=== PATIENT | female | born 1975 | race Caucasian/White ===

== ENCOUNTER 2016-11-09 19:13 | Emergency (ER) | payer OTHER ==
[~2016-11-09] VITALS: Ht 165.1 cm; Wt 102.5 kg
[~2016-11-09 19:13] MED LIST: ALBUTEROL0.09 MG/A2 IH; AMBIEN5 MG PO; ANTIVERT25 MG PO; BUSPAR15 MG PO; BUSPIRONE HCL7.5 MG PO; CELEXA10 MG PO; COLACE-T100 MG PO; IBUPROFEN800 MG PO; IRON325 M1 PO; LISINOPRIL10 MG PO; LISINOPRIL5 MG PO; METOPROLOL25 MG PO; NEXIUM20 MG PO; PERCOCET 325 MG1 TA2 PO; PREDNISONE20 MG PO; PRILOSEC20 MG PO; TRAMADOL HCL50 MG PO; TUMS 500500 MG PO; TYLENOL W/CODEI1 TA2 PO; ULTRAM50 MG PO; ZANTAC 150150 MG PO; ZOFRAN4 MG PO; ZOLOFT50 MG PO
[2016-11-09] MEDS ORDERED: DOXYCYCLINE100 M3 PO (20:45)
[2016-11-09 20:47] VITALS: BP 158/92
== END 2016-11-09 20:47 | disposition home or self-care (01) ==
LOC: ED 19:13
DX: L03.114 Cellulitis of left upper limb (principal); R51 Headache; F17.200 Nicotine dependence, unspecified, uncomplicated; R11.0 Nausea; Z88.0 Allergy status to penicillin; Z88.2 Allergy status to sulfonamides; Z79.899 Other long term (current) drug therapy

== ENCOUNTER 2017-03-11 13:29 | Inpatient (IN) | payer OTHER ==
[~2017-03-11] VITALS: Ht 165.1 cm; Wt 100.7 kg
[~2017-03-11 13:29] MED LIST changes: +DOXYCYCLINE100 M3 PO
[2017-03-11 13:33] VITALS: BP 144/102
[2017-03-11] MEDS ORDERED: PHENTERMINE H37.5 M1 PO (13:34)
[2017-03-11] MEDS ORDERED: LISINOPRIL20 MG PO (13:34)
[2017-03-11 14:10] LABS: BASO # 0.1 10*3/uL (0.0-0.1); BASO % 0.5 % (0.0-1.0); EOS # 0.1 10*3/uL (0.0-0.4); EOS % 0.6 % (1.0-4.0); HEMATOCRIT 44.8 % (37.0-47.0); HEMOGLOBIN 14.5 g/dl (12.0-16.0); LYMPH # 2.2 10*3/uL (1.3-4.4); MEAN CELL VOLUME 80.3 fl (81.0-99.0); MEAN CORPUSCULAR HGB CONC 32.4 g/dl (33.0-37.0); MEAN PLATELET VOLUME 10.2 fl (9.6-12.3); MONO # 0.8 10*3/uL (0.1-1.0); MONO % 6.4 % (3.0-9.0); NEUT # 9.7 10*3/uL (2.3-7.9); NEUT % 75.2 % (47.0-73.0); PLATELET COUNT AUTOMATED 377 10*3/uL (130-400); RED BLOOD COUNT 5.58 10*6/uL (4.10-5.10); RED CELL DISTRI WIDTH 14.9 % (0-14.5); WHITE BLOOD COUNT 12.9 10*3/uL (4.8-10.8)
[2017-03-11 14:19] LABS: INTERNATIONAL NORM RATIO 0.9 (2.0-3.5)
[2017-03-11 14:25] LABS: ALBUMIN 3.5 gm/dl (3.1-4.5); ALKALINE PHOSPHATASE 76 U/L (45-117); BILIRUBIN, TOTAL 0.7 mg/dl (0.2-1.0); BUN 10 mg/dl (7-24); C-REACTIVE PROTEIN 3.44 MG/DL (0-0.3); CARBON DIOXIDE 24 mmol/L (21-32); CHLORIDE 105 mmol/L (98-107); EST GLOM FILT AFRICAN AMERICAN > 60 ml/min; GLUCOSE 92 mg/dL (65-99); MAGNESIUM 1.9 mg/dL (1.5-2.1); POTASSIUM 4.1 mmol/L (3.5-5.1); SGOT/AST 21 IU/L (3-35); SGPT/ALT 38 U/L (12-78); SODIUM 138 mmol/L (136-145); TOTAL PROTEIN 7.1 gm/dL (6.4-8.2)
[2017-03-11 14:26] LABS: TROPONIN I < 0.015 ng/ml (<0.045)
[2017-03-11 16:21] VITALS: BP 151/91
[2017-03-11 16:45] VITALS: BP 150/88
[2017-03-11] MEDS ORDERED: FLONASE ALLERG9.9 ML NAS (17:09)
[2017-03-11] MEDS ORDERED: XANAX0.5 MG PO (17:10)
[2017-03-11 20:00] VITALS: BP 132/69
[2017-03-11 22:57] LABS: BILIRUBIN NEGATIVE (NEGATIVE); BLOOD NEGATIVE (NEGATIVE); CLARITY SL CLOUDY (CLEAR); COLOR YELLOW (YELLOW); GLUCOSE NEGATIVE (NEGATIVE); KETONE 2+ (NEGATIVE); LEUKO ESTERASE NEGATIVE (NEGATIVE); NITRITE NEGATIVE (NEGATIVE); PH 5.5 (5.0-9.0); PROTEIN NEGATIVE (NEGATIVE); UROBILINOGEN 0.2 E.U./dl (0.2-1.0)
[2017-03-11 22:58] LABS: BACTERIA 2+; URINE REFLEX COMMENT YES (NO)
[2017-03-12] VITALS: BP 98/42
[2017-03-12 04:00] VITALS: BP 116/71
[2017-03-12 06:33] LABS: BASO # 0.1 10*3/uL (0.0-0.1); BASO % 0.8 % (0.0-1.0); EOS # 0.2 10*3/uL (0.0-0.4); EOS % 2.3 % (1.0-4.0); LYMPH # 3.1 10*3/uL (1.3-4.4); LYMPH % 41.2 % (27.0-41.0); MEAN CELL VOLUME 82.6 fl (81.0-99.0); MEAN CORPUSCULAR HGB 26.2 pg (27.0-31.0); MEAN CORPUSCULAR HGB CONC 31.7 g/dl (33.0-37.0); MEAN PLATELET VOLUME 10.2 fl (9.6-12.3); MONO # 0.7 10*3/uL (0.1-1.0); MONO % 9.2 % (3.0-9.0); NEUT # 3.4 10*3/uL (2.3-7.9); NEUT % 46.4 % (47.0-73.0); PLATELET COUNT AUTOMATED 290 10*3/uL (130-400); RED BLOOD COUNT 4.32 10*6/uL (4.10-5.10); RED CELL DISTRI WIDTH 14.9 % (0-14.5); WHITE BLOOD COUNT 7.4 10*3/uL (4.8-10.8)
[2017-03-12 06:36] LABS: HEMATOCRIT 35.7 % (37.0-47.0); HEMOGLOBIN 11.3 g/dl (12.0-16.0)
[2017-03-12 06:48] LABS: BUN 6 mg/dl (7-24); CARBON DIOXIDE 28 mmol/L (21-32); CHLORIDE 108 mmol/L (98-107); CHOLESTEROL 108 mg/dL (<200); EST GLOM FILT AFRICAN AMERICAN > 60 ml/min; FREE T4 1.07 ng/dl (0.76-1.46); GLUCOSE 79 mg/dL (65-99); HDL CHOLESTEROL 39 mg/dl (40-60); LDL CHOLESTEROL 52 mg/dL (9-159); PHOSPHOROUS 3.1 mg/dL (2.5-4.9); POTASSIUM 3.9 mmol/L (3.5-5.1); SODIUM 139 mmol/L (136-145); TRIGLYCERIDES 86 mg/dl (<150); VLDL CHOLESTEROL 17 mg/dL (6-40)
[2017-03-12 06:54] LABS: THYROID STIM HORMONE (HS) 0.993 uIU/ml (0.358-4.75)
[2017-03-12 06:57] LABS: HEMOGLOBIN A1c 5.5 % (4.8-5.6)
[2017-03-12 07:36] LABS: VITAMIN D, 25-HYDROXY 16.8 ng/mL (30-100)
[2017-03-12 07:49] LABS: FOLIC ACID > 24.00 ng/mL (>5.38)
[2017-03-12 08:00] VITALS: BP 110/64
[2017-03-12 12:00] VITALS: BP 128/69
[2017-03-12 16:00] VITALS: BP 100/50
[2017-03-12 20:00] VITALS: BP 124/73
[2017-03-13] VITALS: BP 107/54
[2017-03-13 06:59] LABS: BASO # 0.1 10*3/uL (0.0-0.1); BASO % 1.2 % (0.0-1.0); EOS # 0.2 10*3/uL (0.0-0.4); EOS % 3.5 % (1.0-4.0); HEMATOCRIT 33.6 % (37.0-47.0); HEMOGLOBIN 10.5 g/dl (12.0-16.0); LYMPH # 3.2 10*3/uL (1.3-4.4); LYMPH % 45.7 % (27.0-41.0); MEAN CELL VOLUME 83.2 fl (81.0-99.0); MEAN CORPUSCULAR HGB CONC 31.3 g/dl (33.0-37.0); MEAN PLATELET VOLUME 10.2 fl (9.6-12.3); MONO # 0.6 10*3/uL (0.1-1.0); MONO % 9.3 % (3.0-9.0); NEUT # 2.8 10*3/uL (2.3-7.9); PLATELET COUNT AUTOMATED 281 10*3/uL (130-400); RED BLOOD COUNT 4.04 10*6/uL (4.10-5.10); RED CELL DISTRI WIDTH 14.8 % (0-14.5); WHITE BLOOD COUNT 6.9 10*3/uL (4.8-10.8)
[2017-03-13 07:30] LABS: ALBUMIN 2.9 gm/dl (3.1-4.5); CHLORIDE 108 mmol/L (98-107); POTASSIUM 3.7 mmol/L (3.5-5.1); SODIUM 141 mmol/L (136-145)
[2017-03-13 07:38] LABS: ALKALINE PHOSPHATASE 104 U/L (45-117); BILIRUBIN, TOTAL 0.2 mg/dl (0.2-1.0); BUN 8 mg/dl (7-24); CARBON DIOXIDE 27 mmol/L (21-32); EST GLOM FILT AFRICAN AMERICAN > 60 ml/min; GLUCOSE 90 mg/dL (65-99); SGOT/AST 22 IU/L (3-35); SGPT/ALT 28 U/L (12-78)
[2017-03-13 08:00] VITALS: BP 124/64
[2017-03-13 12:00] VITALS: BP 120/65; BP 122/64
[2017-03-13 16:07] VITALS: BP 120/62
[2017-03-13 16:58] VITALS: BP 143/78
[2017-03-13 20:00] VITALS: BP 140/75
[2017-03-14] VITALS: BP 122/57
[2017-03-14 06:17] LABS: BASO # 0.1 10*3/uL (0.0-0.1); BASO % 0.9 % (0.0-1.0); EOS # 0.2 10*3/uL (0.0-0.4); EOS % 3.7 % (1.0-4.0); HEMATOCRIT 32.8 % (37.0-47.0); HEMOGLOBIN 10.4 g/dl (12.0-16.0); LYMPH % 45.1 % (27.0-41.0); MEAN CELL VOLUME 82.4 fl (81.0-99.0); MEAN CORPUSCULAR HGB 26.1 pg (27.0-31.0); MEAN CORPUSCULAR HGB CONC 31.7 g/dl (33.0-37.0); MEAN PLATELET VOLUME 10.6 fl (9.6-12.3); MONO # 0.5 10*3/uL (0.1-1.0); MONO % 8.1 % (3.0-9.0); NEUT # 2.7 10*3/uL (2.3-7.9); NEUT % 41.9 % (47.0-73.0); PLATELET COUNT AUTOMATED 270 10*3/uL (130-400); RED BLOOD COUNT 3.98 10*6/uL (4.10-5.10); RED CELL DISTRI WIDTH 14.8 % (0-14.5); WHITE BLOOD COUNT 6.5 10*3/uL (4.8-10.8)
[2017-03-14 08:00] VITALS: BP 132/92
[2017-03-14] MEDS ORDERED: METRONIDAZOLE500 M1 PO (09:35)
[2017-03-14] MEDS ORDERED: B12,B-12,B 12500 MC1 PO (09:35)
[2017-03-14] MEDS ORDERED: D-1000 185 MG-11 TAB PO (09:35)
[2017-03-14] MEDS ORDERED: CIPROFLOXACIN500 M4 PO (09:35)
== END 2017-03-14 11:04 | disposition home or self-care (01) | DRG 872 ==
LOC: ED 13:29 → EDHOLD 15:53 → 5E 16:17
PROVIDERS: Internal Medicine; Internal Medicine Hospice and Palliative Medicine; Student in an Organized Health Care Education/Training Program
DX: A41.9 Sepsis, unspecified organism (principal); R34 Anuria and oliguria; F33.9 Major depressive disorder, recurrent, unspecified; R18.8 Other ascites; F41.9 Anxiety disorder, unspecified; I10 Essential (primary) hypertension; Z87.891 Personal history of nicotine dependence; Z82.49 Family history of ischemic heart disease and other diseases of the circulatory system; Z88.2 Allergy status to sulfonamides; Z88.0 Allergy status to penicillin; K52.9 Noninfective gastroenteritis and colitis, unspecified; J45.909 Unspecified asthma, uncomplicated; E66.9 Obesity, unspecified; N92.1 Excessive and frequent menstruation with irregular cycle; R79.82 Elevated C-reactive protein (CRP); E55.9 Vitamin D deficiency, unspecified; E53.8 Deficiency of other specified B group vitamins; Z90.49 Acquired absence of other specified parts of digestive tract

== ENCOUNTER 2017-07-04 01:58 | Emergency (ER) | payer OTHER ==
[~2017-07-04] VITALS: Ht 165.1 cm; Wt 93.0 kg
[~2017-07-04 01:58] MED LIST changes: +B12,B-12,B 12500 MC1 PO; +CIPROFLOXACIN500 M4 PO; +D-1000 185 MG-11 TAB PO; +FLONASE ALLERG9.9 ML NAS; +LISINOPRIL20 MG PO; +METRONIDAZOLE500 M1 PO; +PHENTERMINE H37.5 M1 PO; +XANAX0.5 MG PO
[2017-07-04 02:22] VITALS: BP 145/78
[2017-07-04] MEDS ORDERED: Motrin,Rufen800 MG PO (02:52)
[2017-07-04] MEDS ORDERED: CLINDAMYCIN HC300 MG PO (02:52)
== END 2017-07-04 03:41 | disposition home or self-care (01) ==
LOC: ED 01:58
DX: K04.01 Reversible pulpitis (principal); K02.9 Dental caries, unspecified; I10 Essential (primary) hypertension; J45.909 Unspecified asthma, uncomplicated; Z88.0 Allergy status to penicillin; Z88.2 Allergy status to sulfonamides; Z79.899 Other long term (current) drug therapy; Z87.891 Personal history of nicotine dependence

== ENCOUNTER → 2017-07-18 | Outpatient (CLI) | payer OTHER ==
[~2017-07-18] MED LIST changes: +CLINDAMYCIN HC300 MG PO; +Motrin,Rufen800 MG PO
== END | disposition home or self-care (01) ==
LOC: RAD 15:22
DX: M47.896 Other spondylosis, lumbar region (principal); M54.41 Lumbago with sciatica, right side

== ENCOUNTER 2017-12-10 18:19 | Inpatient (IN) | payer OTHER ==
[~2017-12-10] VITALS: Ht 165.1 cm; Wt 101.3 kg
[2017-12-10 18:30] VITALS: BP 146/103
[2017-12-10 19:08] VITALS: BP 139/95
[2017-12-10 19:17] LABS: BASO % 0.8 % (0.0-1.0); EOS # 0.1 10*3/uL (0.0-0.4); EOS % 2.6 % (1.0-4.0); HEMATOCRIT 40.6 % (37.0-47.0); HEMOGLOBIN 13.2 g/dl (12.0-16.0); LYMPH # 1.7 10*3/uL (1.3-4.4); LYMPH % 32.1 % (27.0-41.0); MEAN CELL VOLUME 83.5 fl (81.0-99.0); MEAN CORPUSCULAR HGB 27.2 pg (27.0-31.0); MEAN CORPUSCULAR HGB CONC 32.5 g/dl (33.0-37.0); MEAN PLATELET VOLUME 9.7 fl (9.6-12.3); MONO # 0.6 10*3/uL (0.1-1.0); MONO % 11.5 % (3.0-9.0); NEUT # 2.8 10*3/uL (2.3-7.9); NEUT % 52.6 % (47.0-73.0); PLATELET COUNT AUTOMATED 259 10*3/uL (130-400); RED BLOOD COUNT 4.86 10*6/uL (4.10-5.10); RED CELL DISTRI WIDTH 14.6 % (0-14.5); WHITE BLOOD COUNT 5.3 10*3/uL (4.8-10.8)
[2017-12-10 19:31] LABS: INTERNATIONAL NORM RATIO 0.9 (2.0-3.5)
[2017-12-10 19:33] LABS: ALBUMIN 3.2 gm/dl (3.1-4.5); BUN 10 mg/dl (7-24); CHLORIDE 101 mmol/L (98-107); CREATININE 0.69 mg/dL (0.55-1.02); POTASSIUM 3.7 mmol/L (3.5-5.1); SGOT/AST 12 IU/L (3-35); SGPT/ALT 18 U/L (12-78); SODIUM 137 mmol/L (136-145); TOTAL PROTEIN 7.2 gm/dL (6.4-8.2)
[2017-12-10 19:34] LABS: ALKALINE PHOSPHATASE 101 U/L (45-117)
[2017-12-10 19:36] LABS: TROPONIN I < 0.015 ng/ml (<0.045)
[2017-12-10 20:33] VITALS: BP 135/86
[2017-12-10 21:38] LABS: BILIRUBIN NEGATIVE (NEGATIVE); BLOOD TRACE-INTACT (NEGATIVE); CLARITY CLEAR (CLEAR); COLOR YELLOW (YELLOW); GLUCOSE NEGATIVE (NEGATIVE); KETONE NEGATIVE (NEGATIVE); LEUKO ESTERASE NEGATIVE (NEGATIVE); NITRITE NEGATIVE (NEGATIVE); PH 5.5 (5.0-9.0); SPECIFIC GRAVITY >= 1.030 (1.005-1.030); UROBILINOGEN 0.2 E.U./dl (0.2-1.0)
[2017-12-10 21:58] VITALS: BP 128/68
[2017-12-10 22:02] LABS: BACTERIA TRACE
[2017-12-10 22:53] VITALS: BP 118/67
[2017-12-10 23:30] VITALS: BP 132/90
[2017-12-11 02:53] LABS: BASO % 0.6 % (0.0-1.0); EOS # 0.1 10*3/uL (0.0-0.4); EOS % 2.1 % (1.0-4.0); HEMATOCRIT 35.7 % (37.0-47.0); HEMOGLOBIN 11.6 g/dl (12.0-16.0); LYMPH # 2.5 10*3/uL (1.3-4.4); LYMPH % 52.3 % (27.0-41.0); MEAN CELL VOLUME 84.2 fl (81.0-99.0); MEAN CORPUSCULAR HGB 27.4 pg (27.0-31.0); MEAN CORPUSCULAR HGB CONC 32.5 g/dl (33.0-37.0); MONO # 0.7 10*3/uL (0.1-1.0); MONO % 14.8 % (3.0-9.0); NEUT # 1.4 10*3/uL (2.3-7.9); PLATELET COUNT AUTOMATED 231 10*3/uL (130-400); RED BLOOD COUNT 4.24 10*6/uL (4.10-5.10); RED CELL DISTRI WIDTH 14.5 % (0-14.5); WHITE BLOOD COUNT 4.7 10*3/uL (4.8-10.8)
[2017-12-11 03:03] LABS: BUN 10 mg/dl (7-24); CHLORIDE 106 mmol/L (98-107); POTASSIUM 3.7 mmol/L (3.5-5.1); SODIUM 139 mmol/L (136-145)
[2017-12-11 03:06] LABS: CHOLESTEROL 124 mg/dL (<200); HDL CHOLESTEROL 37 mg/dl (40-60); LDL CHOLESTEROL 76 mg/dL (9-159); PHOSPHOROUS 3.4 mg/dL (2.5-4.9); TRIGLYCERIDES 55 mg/dl (<150); VLDL CHOLESTEROL 11 mg/dL (6-40)
[2017-12-11 07:30] VITALS: BP 132/84
[2017-12-11 08:48] LABS: VITAMIN D, 25-HYDROXY 21.5 ng/mL (30-100)
[2017-12-11 12:00] VITALS: BP 121/64
[2017-12-11 16:00] VITALS: BP 112/65
[2017-12-11 20:00] VITALS: BP 117/53
[2017-12-12] VITALS: BP 121/68
[2017-12-12 07:30] VITALS: BP 122/62
[2017-12-12 11:00] VITALS: BP 130/74
[2017-12-12] MEDS ORDERED: Zofran4 MG SL (15:56)
[2017-12-12 16:00] VITALS: BP 151/78
[2017-12-12] MEDS ORDERED: LOPRESSOR25 MG PO (17:01)
== END 2017-12-12 17:57 | disposition home or self-care (01) | DRG 872 ==
LOC: ED 18:19 → EDHOLD 22:49 → 4E 23:21
PROVIDERS: Physician Assistant; Student in an Organized Health Care Education/Training Program
PROC: 4A02XM4 Measurement of Cardiac Total Activity, External Approach (ICD-10-PCS; principal; 2017-12-12)
DX: A41.9 Sepsis, unspecified organism (principal); E44.1 Mild protein-calorie malnutrition; F33.9 Major depressive disorder, recurrent, unspecified; E83.41 Hypermagnesemia; B34.9 Viral infection, unspecified; I10 Essential (primary) hypertension; D64.9 Anemia, unspecified; J45.909 Unspecified asthma, uncomplicated; E66.9 Obesity, unspecified; R00.2 Palpitations; G47.33 Obstructive sleep apnea (adult) (pediatric); Z90.49 Acquired absence of other specified parts of digestive tract; Z87.891 Personal history of nicotine dependence; Z82.49 Family history of ischemic heart disease and other diseases of the circulatory system; Z83.3 Family history of diabetes mellitus; Z88.0 Allergy status to penicillin; Z88.2 Allergy status to sulfonamides; Z79.01 Long term (current) use of anticoagulants; Z79.899 Other long term (current) drug therapy; Z68.37 Body mass index [BMI] 37.0-37.9, adult

== ENCOUNTER 2018-01-25 19:22 | Inpatient (IN) | payer OTHER ==
[~2018-01-25] VITALS: Ht 165.1 cm; Wt 101.7 kg
--- NOTE | ~2018-01-25 | EKG ---
[place], [place] ELECTROCARDIOGRAM REPORT NAME: LUCINDA BUTLER UNIT #: [id number] ROOM: [id number] DOCTOR: KANDY WILSON,PADMINI BIRTHDATE: [birth year] DOS: 01/25/2018 TIME: 1957 hours. FINDINGS: 1. Normal sinus rhythm at 91 beats per minute. 2. Left ventricular hypertrophy. 3. Nonspecific T-wave changes in chest leads. 4. There is minimal ST segment depression and T-wave abnormality in lead III and aVF. 5. An abnormal ECG. 6. No previous tracing is available for comparison. PADMINI GAITAN MD CM:EKGRPT:ELECTROCARDIOGRAM REPORT [id number] PADMINI GAITAN MD
[~2018-01-25 19:22] MED LIST changes: +LOPRESSOR25 MG PO; +Zofran4 MG SL
[2018-01-25 19:25] VITALS: BP 142/94
[2018-01-25 19:58] LABS: BASO % 0.6 % (0.0-1.0); EOS # 0.1 10*3/uL (0.0-0.4); EOS % 1.5 % (1.0-4.0); HEMATOCRIT 42.1 % (37.0-47.0); HEMOGLOBIN 13.7 g/dl (12.0-16.0); LYMPH # 1.3 10*3/uL (1.3-4.4); LYMPH % 27.2 % (27.0-41.0); MEAN CELL VOLUME 83.7 fl (81.0-99.0); MEAN CORPUSCULAR HGB 27.2 pg (27.0-31.0); MEAN CORPUSCULAR HGB CONC 32.5 g/dl (33.0-37.0); MEAN PLATELET VOLUME 9.9 fl (9.6-12.3); MONO # 0.7 10*3/uL (0.1-1.0); MONO % 14.6 % (3.0-9.0); NEUT # 2.6 10*3/uL (2.3-7.9); NEUT % 55.7 % (47.0-73.0); PLATELET COUNT AUTOMATED 246 10*3/uL (130-400); RED BLOOD COUNT 5.03 10*6/uL (4.10-5.10); RED CELL DISTRI WIDTH 14.2 % (0-14.5); WHITE BLOOD COUNT 4.7 10*3/uL (4.8-10.8)
[2018-01-25 20:00] VITALS: BP 118/85
[2018-01-25 20:15] LABS: ALBUMIN 2.9 gm/dl (3.1-4.5); ALKALINE PHOSPHATASE 234 U/L (45-117); BUN 8 mg/dl (7-24); CHLORIDE 102 mmol/L (98-107); CREATININE 0.62 mg/dL (0.55-1.02); LIPASE 278 U/L (73-393); POTASSIUM 3.6 mmol/L (3.5-5.1); SGOT/AST 204 IU/L (3-35); SGPT/ALT 129 U/L (12-78); SODIUM 135 mmol/L (136-145); TOTAL PROTEIN 6.4 gm/dL (6.4-8.2); TROPONIN I < 0.015 ng/ml (<0.045)
[2018-01-25 20:22] VITALS: BP 118/85
[2018-01-25 20:51] VITALS: BP 131/66
[2018-01-25 21:36] LABS: BILIRUBIN NEGATIVE (NEGATIVE); BLOOD NEGATIVE (NEGATIVE); CLARITY CLEAR (CLEAR); COLOR YELLOW (YELLOW); GLUCOSE NEGATIVE (NEGATIVE); KETONE NEGATIVE (NEGATIVE); LEUKO ESTERASE NEGATIVE (NEGATIVE); NITRITE NEGATIVE (NEGATIVE); PH 6.5 (5.0-9.0); SPECIFIC GRAVITY <= 1.005 (1.005-1.030); UROBILINOGEN 0.2 E.U./dl (0.2-1.0)
[2018-01-25 21:40] LABS: BACTERIA 2+; RBC 0-2 rbc/hpf (0-2)
[2018-01-25 22:00] VITALS: BP 119/69
[2018-01-25] MEDS ORDERED: CITALOPRAM HYDR40 MG PO (22:10)
[2018-01-26] VITALS: BP 106/54
[2018-01-26 05:58] LABS: BASO % 0.9 % (0.0-1.0); EOS # 0.1 10*3/uL (0.0-0.4); EOS % 2.3 % (1.0-4.0); HEMATOCRIT 37.3 % (37.0-47.0); HEMOGLOBIN 11.8 g/dl (12.0-16.0); LYMPH % 46.2 % (27.0-41.0); MEAN CELL VOLUME 86.1 fl (81.0-99.0); MEAN CORPUSCULAR HGB 27.3 pg (27.0-31.0); MEAN CORPUSCULAR HGB CONC 31.6 g/dl (33.0-37.0); MEAN PLATELET VOLUME 10.4 fl (9.6-12.3); MONO # 0.7 10*3/uL (0.1-1.0); MONO % 16.4 % (3.0-9.0); NEUT # 1.5 10*3/uL (2.3-7.9); PLATELET COUNT AUTOMATED 228 10*3/uL (130-400); RED BLOOD COUNT 4.33 10*6/uL (4.10-5.10); RED CELL DISTRI WIDTH 14.3 % (0-14.5); WHITE BLOOD COUNT 4.3 10*3/uL (4.8-10.8)
[2018-01-26 06:01] LABS: ALBUMIN 2.5 gm/dl (3.1-4.5); BUN 7 mg/dl (7-24); CHLORIDE 107 mmol/L (98-107); POTASSIUM 3.6 mmol/L (3.5-5.1); SGPT/ALT 162 U/L (12-78); SODIUM 141 mmol/L (136-145)
[2018-01-26 06:04] LABS: ALKALINE PHOSPHATASE 210 U/L (45-117); PHOSPHOROUS 3.1 mg/dL (2.5-4.9); SGOT/AST 244 IU/L (3-35); TOTAL PROTEIN 5.5 gm/dL (6.4-8.2)
[2018-01-26 08:00] VITALS: BP 117/63
[2018-01-26 12:00] VITALS: BP 112/65
[2018-01-26] MEDS ORDERED: VOLTAREN100 GM T (13:31)
[2018-01-26] MEDS ORDERED: VOLTAREN50 M1 PO (15:48)
[2018-01-26 16:07] VITALS: BP 129/77
[2018-01-26 20:00] VITALS: BP 121/75
[2018-01-27] VITALS: BP 112/51
[2018-01-27 05:55] LABS: BASO % 0.4 % (0.0-1.0); EOS # 0.3 10*3/uL (0.0-0.4); EOS % 4.6 % (1.0-4.0); HEMATOCRIT 35.9 % (37.0-47.0); HEMOGLOBIN 11.3 g/dl (12.0-16.0); LYMPH # 2.4 10*3/uL (1.3-4.4); LYMPH % 44.1 % (27.0-41.0); MEAN CELL VOLUME 86.9 fl (81.0-99.0); MEAN CORPUSCULAR HGB 27.4 pg (27.0-31.0); MEAN CORPUSCULAR HGB CONC 31.5 g/dl (33.0-37.0); MEAN PLATELET VOLUME 10.5 fl (9.6-12.3); MONO # 0.7 10*3/uL (0.1-1.0); MONO % 13.3 % (3.0-9.0); NEUT % 37.2 % (47.0-73.0); PLATELET COUNT AUTOMATED 220 10*3/uL (130-400); RED BLOOD COUNT 4.13 10*6/uL (4.10-5.10); RED CELL DISTRI WIDTH 14.4 % (0-14.5); WHITE BLOOD COUNT 5.4 10*3/uL (4.8-10.8)
[2018-01-27 05:56] LABS: ALBUMIN 2.4 gm/dl (3.1-4.5); ALKALINE PHOSPHATASE 200 U/L (45-117); BUN 7 mg/dl (7-24); CHLORIDE 108 mmol/L (98-107); CREATININE 0.47 mg/dL (0.55-1.02); LIPASE 95 U/L (73-393); POTASSIUM 3.9 mmol/L (3.5-5.1); SGOT/AST 101 IU/L (3-35); SGPT/ALT 140 U/L (12-78); SODIUM 140 mmol/L (136-145); TOTAL PROTEIN 5.4 gm/dL (6.4-8.2)
[2018-01-27 08:00] VITALS: BP 127/78
[2018-01-27] MEDS ORDERED: CITALOPRAM HYDR40 MG PO (11:21)
[2018-01-27] MEDS ORDERED: PHENERGAN25 M3 PO (11:21)
[2018-01-27] MEDS ORDERED: LISINOPRIL20 MG PO (11:21)
[2018-01-28 08:08] LABS: HEPATITIS B SURFACE AG Negative (Negative); HEPATITIS C VIRUS ANTIBODY <0.1 s/co (0.0-0.9)
== END 2018-01-27 12:58 | disposition home or self-care (01) | DRG 392 ==
LOC: ED 19:22 → EDHOLD 21:15 → 4E 21:40
PROVIDERS: Emergency Medicine; Emergency Medicine Emergency Medical Services; Family Medicine; Student in an Organized Health Care Education/Training Program
DX: K52.9 Noninfective gastroenteritis and colitis, unspecified (principal); E87.1 Hypo-osmolality and hyponatremia; B34.9 Viral infection, unspecified; E66.9 Obesity, unspecified; F32.9 Major depressive disorder, single episode, unspecified; J45.909 Unspecified asthma, uncomplicated; I10 Essential (primary) hypertension; G47.33 Obstructive sleep apnea (adult) (pediatric); F41.9 Anxiety disorder, unspecified; E78.5 Hyperlipidemia, unspecified; R74.0 Nonspecific elevation of levels of transaminase and lactic acid dehydrogenase [LDH]; R00.0 Tachycardia, unspecified; D72.819 Decreased white blood cell count, unspecified; E53.8 Deficiency of other specified B group vitamins; E55.9 Vitamin D deficiency, unspecified; Z88.2 Allergy status to sulfonamides; Z88.0 Allergy status to penicillin; Z90.49 Acquired absence of other specified parts of digestive tract; Z87.891 Personal history of nicotine dependence; Z83.3 Family history of diabetes mellitus; Z82.49 Family history of ischemic heart disease and other diseases of the circulatory system; Z68.37 Body mass index [BMI] 37.0-37.9, adult

== ENCOUNTER → 2018-04-07 | Outpatient (CLI) | payer OTHER ==
[~2018-04-07] MED LIST changes: +CITALOPRAM HYDR40 MG PO; +PHENERGAN25 M3 PO; +VOLTAREN100 GM T; +VOLTAREN50 M1 PO
[2018-04-07 19:44] LABS: BASO # 0.1 10*3/uL (0.0-0.1); BASO % 1.1 % (0.0-1.0); BILIRUBIN NEGATIVE (NEGATIVE); BLOOD NEGATIVE (NEGATIVE); CLARITY CLEAR (CLEAR); COLOR YELLOW (YELLOW); EOS # 0.3 10*3/uL (0.0-0.4); EOS % 2.5 % (1.0-4.0); GLUCOSE NEGATIVE (NEGATIVE); HEMATOCRIT 40.1 % (37.0-47.0); HEMOGLOBIN 12.7 g/dl (12.0-16.0); KETONE NEGATIVE (NEGATIVE); LEUKO ESTERASE NEGATIVE (NEGATIVE); LYMPH # 3.5 10*3/uL (1.3-4.4); LYMPH % 35.4 % (27.0-41.0); MEAN CELL VOLUME 86.1 fl (81.0-99.0); MEAN CORPUSCULAR HGB 27.3 pg (27.0-31.0); MEAN CORPUSCULAR HGB CONC 31.7 g/dl (33.0-37.0); MONO # 0.9 10*3/uL (0.1-1.0); MONO % 9.2 % (3.0-9.0); NEUT # 5.1 10*3/uL (2.3-7.9); NEUT % 51.5 % (47.0-73.0); NITRITE NEGATIVE (NEGATIVE); PLATELET COUNT AUTOMATED 313 10*3/uL (130-400); RED BLOOD COUNT 4.66 10*6/uL (4.10-5.10); RED CELL DISTRI WIDTH 13.9 % (0-14.5); SPECIFIC GRAVITY 1.015 (1.005-1.030); UROBILINOGEN 0.2 E.U./dl (0.2-1.0)
[2018-04-07 19:49] LABS: BACTERIA 2+; MUCOUS TRACE; WBC 0-2 wbc/hpf (0-5)
[2018-04-07 19:55] LABS: ACT PARTIAL THROMBO TIME 23.5 SECONDS (20.8-31.5); INTERNATIONAL NORM RATIO 0.9 (2.0-3.5)
[2018-04-07 20:01] LABS: ALBUMIN 3.4 gm/dl (3.1-4.5); ALKALINE PHOSPHATASE 111 U/L (45-117); BUN 13 mg/dl (7-24); CHLORIDE 105 mmol/L (98-107); CREATININE 0.66 mg/dL (0.55-1.02); POTASSIUM 4.2 mmol/L (3.5-5.1); SGOT/AST 5 IU/L (3-35); SGPT/ALT 21 U/L (12-78); SODIUM 137 mmol/L (136-145); TOTAL PROTEIN 7.1 gm/dL (6.4-8.2)
== END ==
LOC: LAB 18:44
PROVIDERS: Orthopaedic Surgery
DX: Z01.818 Encounter for other preprocedural examination (principal); M19.90 Unspecified osteoarthritis, unspecified site; I10 Essential (primary) hypertension; J45.909 Unspecified asthma, uncomplicated; M79.669 Pain in unspecified lower leg

== ENCOUNTER 2019-12-20 07:45 | Emergency (ER) | payer OTHER ==
[~2019-12-20] VITALS: Ht 165.1 cm; Wt 97.5 kg
[~2019-12-20 07:45] MED LIST changes: +ROBAXIN-750750 MG PO; +VISTARIL25 M2 PO
[2019-12-20 07:50] VITALS: BP 130/69
[2019-12-20 08:22] LABS: BASO % 0.3 % (0.0-1.0); EOS % 0.3 % (1.0-4.0); HEMATOCRIT 44.6 % (37.0-47.0); HEMOGLOBIN 14.8 g/dl (12.0-16.0); LYMPH % 14.3 % (27.0-41.0); MEAN CELL VOLUME 84.6 fl (81.0-99.0); MEAN CORPUSCULAR HGB 28.1 pg (27.0-31.0); MEAN CORPUSCULAR HGB CONC 33.2 g/dl (33.0-37.0); MEAN PLATELET VOLUME 9.9 fl (9.6-12.3); MONO # 0.4 10*3/uL (0.1-1.0); MONO % 5.4 % (3.0-9.0); NEUT # 5.3 10*3/uL (2.3-7.9); NEUT % 79.1 % (47.0-73.0); PLATELET COUNT AUTOMATED 283 10*3/uL (130-400); RED BLOOD COUNT 5.27 10*6/uL (4.10-5.10); RED CELL DISTRI WIDTH 14.2 % (0-14.5); WHITE BLOOD COUNT 6.7 10*3/uL (4.8-10.8)
[2019-12-20 08:47] LABS: ALBUMIN 2.9 gm/dl (3.1-4.5); ALKALINE PHOSPHATASE 146 U/L (45-117); BUN 13 mg/dl (7-24); CHLORIDE 105 mmol/L (98-107); CREATININE 0.63 mg/dL (0.55-1.02); POTASSIUM 3.8 mmol/L (3.5-5.1); SGOT/AST 47 IU/L (3-35); SGPT/ALT 49 U/L (12-78); SODIUM 136 mmol/L (136-145); TOTAL PROTEIN 6.6 gm/dL (6.4-8.2)
[2019-12-20] MEDS ORDERED: NAPROSYN500 MG PO ×2 (09:40→11:04)
[2019-12-20] MEDS ORDERED: REGLAN10 M1 PO ×2 (09:40→11:04)
[2019-12-20] MEDS ORDERED: BENADRYL ALLERG25 M5 PO ×2 (09:40→11:04)
[2019-12-20] MEDS ORDERED: TYLENOL325 M1 PO ×2 (09:40→11:04)
== END 2019-12-20 09:38 | disposition home or self-care (01) ==
LOC: ED 07:45
PROVIDERS: Emergency Medicine
DX: B34.9 Viral infection, unspecified (principal); M19.90 Unspecified osteoarthritis, unspecified site; J45.909 Unspecified asthma, uncomplicated; I10 Essential (primary) hypertension; E66.9 Obesity, unspecified; Z88.2 Allergy status to sulfonamides; Z79.899 Other long term (current) drug therapy; Z87.891 Personal history of nicotine dependence

== ENCOUNTER 2024-07-01 16:25 | Emergency (ER) | payer OTHER ==
[~2024-07-01] VITALS: Wt 79.4 kg
[~2024-07-01 16:25] MED LIST changes: +AMOX-CLAV 875-1 EACH PO; +BENADRYL ALLERG25 M5 PO; +DULOXETINE HCL60 MG PO; +LISINOPRIL10 M1 PO; +MEDROL DOSEPAK4 MG PO; +MELOXICAM7.5 MG PO; +NAPROSYN500 MG PO; +PANTOPRAZOLE SO40 MG PO; +REGLAN10 M1 PO; +TYLENOL325 M1 PO; +VENT7GM INH; +WELLBUTRIN SR100 MG PO
[2024-07-01 16:51] VITALS: BP 161/121
[2024-07-01 17:26] LABS: BASO # 0.1 10*3/uL (0.0-0.1); BASO % 1.2 % (0.0-1.0); EOS # 0.1 10*3/uL (0.0-0.4); EOS % 1.6 % (1.0-4.0); HEMATOCRIT 46.1 % (37.0-47.0); LYMPH # 3.3 10*3/uL (1.3-4.4); LYMPH % 43.3 % (27.0-41.0); MEAN CELL VOLUME 85.8 fl (81.0-99.0); MEAN CORPUSCULAR HGB 28.5 pg (27.0-31.0); MEAN CORPUSCULAR HGB CONC 33.2 g/dl (33.0-37.0); MONO # 0.6 10*3/uL (0.1-1.0); MONO % 8.4 % (3.0-9.0); NEUT # 3.4 10*3/uL (2.3-7.9); NEUT % 45.2 % (47.0-73.0); PLATELET COUNT AUTOMATED 288 10*3/uL (130-400); RED BLOOD COUNT 5.37 10*6/uL (4.10-5.10); RED CELL DISTRI WIDTH 13.8 % (0-14.5); WHITE BLOOD COUNT 7.6 10*3/uL (4.8-10.8)
[2024-07-01 17:46] LABS: BUN 5 mg/dl (9-23); CHLORIDE 107 mmol/L (98-107); CPK 55 U/L (34-171); POTASSIUM 3.3 mmol/L (3.4-5.1)
[2024-07-01 17:47] LABS: ETHYL ALCOHOL < 3.0 mg/dl (<3)
[2024-07-01 17:49] LABS: BILIRUBIN Negative (Negative); BLOOD 1+ (Negative); CLARITY Cloudy (Clear); COLOR Yellow (Yellow); GLUCOSE Negative (Negative); KETONE Trace (Negative); LEUKO ESTERASE Negative (Negative); NITRITE Negative (Negative); PH 5.5 (4.5-8.0)
[2024-07-01 17:55] LABS: BACTERIA 1+; EPITHELIAL CELLS 16-20; MUCOUS 2+
[2024-07-01 17:56] LABS: URINE AMPHETAMINES Negative (1000ng/ml); URINE BARBITURATES Negative (200ng/ml); URINE BENZODIAZEPINES Negative (200ng/ml); URINE CANNABINOIDS (THC) Positive (50ng/ml); URINE COCAINE Negative (300ng/ml); URINE METHADONE Negative (300ng/ml); URINE OPIATES Negative (300ng/ml); URINE PHENCYCLIDINE Negative (25ng/ml)
== END 2024-07-01 19:29 | disposition home or self-care (01) ==
LOC: ED 16:25
PROVIDERS: Physician Assistant Medical
DX: F43.23 Adjustment disorder with mixed anxiety and depressed mood (principal); F41.9 Anxiety disorder, unspecified; F32.A Depression, unspecified; Z88.2 Allergy status to sulfonamides; Z79.2 Long term (current) use of antibiotics; Z79.899 Other long term (current) drug therapy; Z90.49 Acquired absence of other specified parts of digestive tract; Z87.891 Personal history of nicotine dependence

== ENCOUNTER 2024-10-05 16:32 | Emergency (ER) | payer OTHER ==
[~2024-10-05] VITALS: Ht 165.1 cm; Wt 77.1 kg
[2024-10-05 17:18] VITALS: BP 177/122
[2024-10-05 17:56] LABS: BASO # 0.1 10*3/uL (0.0-0.1); BASO % 1.2 % (0.0-1.0); EOS # 0.6 10*3/uL (0.0-0.4); EOS % 6.3 % (1.0-4.0); HEMATOCRIT 45.9 % (37.0-47.0); MEAN CELL VOLUME 88.4 fl (81.0-99.0); MEAN CORPUSCULAR HGB 28.7 pg (27.0-31.0); MEAN CORPUSCULAR HGB CONC 32.5 g/dl (33.0-37.0); MEAN PLATELET VOLUME 9.6 fl (9.6-12.3); MONO # 0.9 10*3/uL (0.1-1.0); MONO % 10.1 % (3.0-9.0); NEUT # 3.5 10*3/uL (2.3-7.9); NEUT % 38.6 % (47.0-73.0); PLATELET COUNT AUTOMATED 285 10*3/uL (130-400); RED BLOOD COUNT 5.19 10*6/uL (4.10-5.10); RED CELL DISTRI WIDTH 13.7 % (0-14.5); WHITE BLOOD COUNT 9.1 10*3/uL (4.8-10.8)
[2024-10-05 18:14] LABS: BUN 10 mg/dl (9-23); CHLORIDE 104 mmol/L (98-107); POTASSIUM 3.7 mmol/L (3.4-5.1)
[2024-10-05] MEDS ORDERED: PREDNISONE20 M1 PO (18:38)
== END 2024-10-05 18:44 | disposition home or self-care (01) ==
LOC: ED 16:32
PROVIDERS: Internal Medicine
DX: R21 Rash and other nonspecific skin eruption (principal); I10 Essential (primary) hypertension; J45.909 Unspecified asthma, uncomplicated; F32.A Depression, unspecified; M19.90 Unspecified osteoarthritis, unspecified site; F41.9 Anxiety disorder, unspecified; Z88.2 Allergy status to sulfonamides; Z90.49 Acquired absence of other specified parts of digestive tract; Z98.890 Other specified postprocedural states; Z87.891 Personal history of nicotine dependence